=== PATIENT | female | born 1985 | race Caucasian/White ===

== ENCOUNTER 2017-04-25 23:44 | Observation (INO) | payer MEDICAID, OTHER ==
--- NOTE | 2017-04-25 23:56 | EDPHY ---
H & P Time Seen by Provider: 04/25/17 23:46 HPI/ROS: CHIEF COMPLAINT: Right ankle pain HISTORY OF PRESENT ILLNESS: This is a 31-year-old female presenting to the emergency department with. Police department patient states she has been having right ankle pain status post injury 4 days ago, patient states she did go to [facility] 2 days ago but left without being seen. Over the course of 2 days patient stated has increased pain and redness noted to her right ankle" I accidentally dropped a needle on my foot 2 days ago before the redness started" . Patient also reports IV heroin and meth use, last used 04/24/2017 around midnight. Patient states also reports on occasion she has shot up IV drugs in her legs but is adamant of no IV drug use in her feet or in between her toes. " I always use clean needles". Denies any other complaints Please department reports patient was running without difficulty to avoid being arrested REVIEW OF SYSTEMS: Constitutional: No fever. chills. Eyes: No discharge. No blurred vision ENT: No sore throat. Cardiovascular: No chest pain, no palpitations. Respiratory: No cough, no shortness of breath. Gastrointestinal: No abdominal pain, no vomiting. Genitourinary: No hematuria. Musculoskeletal: No back pain. Right ankle pain Skin: No rashes. Neurological: No headache. Physical Exam: General Appearance: Alert, no distress. Head/Eyes: Normocephalic. Abrasion noted right eyebrow. Pupils equal and round no pallor or injection. ENT, Mouth: Mucous membranes moist. Respiratory: There are no retractions, lungs are clear to auscultation. Cardiovascular: Regular rate and rhythm. Gastrointestinal: Abdomen is soft and nontender, no masses, bowel sounds normal. Neurological: No focal deficits Skin: Warm and dry, IV track jorge bilateral upper extremities. Two small puncture wounds noted to right ankle Musculoskeletal: Neck is supple nontender. Extremities: Right ankle swelling, erythema, warm and tender to touch positive CMS intacts. full range of motion. Psychiatric: Patient is oriented X 3, there is no agitation. Constitutional: Initial Vital Signs Temperature (C) 37.6 C 04/25/17 23:55 Heart Rate 116 H 04/25/17 23:55 Respiratory Rate 18 04/25/17 23:55 Blood Pressure 103/78 04/25/17 23:55 O2 Sat (%) 94 06/01/17 23:55 O2 Delivery Mode Room Air Allergies/Adverse Reactions: Penicillins Allergy (Verified 04/25/17 23:54) Home Medications: Medication Instructions Recorded Advair 100/50 (*) 04/25/17 Albuterol 04/25/17 Medical Decision Making ED Course/Re-evaluation: Discussed ED plan of care: CBC, CMP, lactate acid, HCG, and blood cultures ankle x-ray 0115: Patient was was caught with syringe with either meth and heroin unknown at this time, attempting to inject drugs using her IV. KUB ordered to rule out any drugs that may be packed in rectum or vagina. energy control officer at bedside, all personal items removed. 0140: Patient turned over to Dr. Taylor, stable NAD patient awaiting admit Differential Diagnosis: Other differential diagnosis considered but not limited to septic joint, ankle fracture and sepsis - Data Points Laboratory Results: Laboratory Results 04/26/17 00:40 04/26/17 04/26/17 04/26/17 00:50 00:40 00:40 WBC RBC Hgb Hct Pending MCV MCH MCHC RDW Plt Count MPV Neut % (Auto) Lymph % (Auto) [place] % (Auto) Eos % (Auto) Baso % (Auto) Nucleat RBC Rel Count Absolute Neuts (auto) Absolute Lymphs (auto) Absolute Monos (auto) Absolute Eos (auto) Absolute Basos (auto) Absolute Nucleated RBC Immature Gran % Immature Gran # ESR Pending VBG Lactic Acid 1.1 mmol/L mmol/L (0.7-2.1) Sodium Potassium Chloride Carbon Dioxide Anion Gap BUN Creatinine Estimated GFR Glucose Calcium Total Bilirubin AST ALT Alkaline Phosphatase C-Reactive Protein Total Protein Albumin Beta HCG, Qual NEGATIVE 04/26/17 04/26/17 00:40 00:40 WBC 11.45 10^3/uL H 10^3/uL (3.80-9.50) RBC 4.67 10^6/uL 10^6/uL (4.18-5.33) Hgb 12.8 g/dL g/dL (12.6-16.3) Hct 38.4 % % (38.0-47.0) MCV 82.2 fL fL (81.5-99.8) MCH 27.4 pg L pg (27.9-34.1) MCHC 33.3 g/dL g/dL (32.4-36.7) RDW 13.0 % % (11.5-15.2) Plt Count 263 10^3/uL 10^3/uL (150-400) MPV 10.0 fL fL (8.7-11.7) Neut % (Auto) 71.3 % % (39.3-74.2) Lymph % (Auto) 19.1 % % (15.0-45.0) [place] % (Auto) 7.3 % % (4.5-13.0) Eos % (Auto) 1.6 % % (0.6-7.6) Baso % (Auto) 0.4 % % (0.3-1.7) Nucleat RBC Rel Count 0.0 % % (0.0-0.2) Absolute Neuts (auto) 8.15 10^3/uL H 10^3/uL (1.70-6.50) Absolute Lymphs (auto) 2.19 10^3/uL 10^3/uL (1.00-3.00) Absolute Monos (auto) 0.84 10^3/uL H 10^3/uL (0.30-0.80) Absolute Eos (auto) 0.18 10^3/uL 10^3/uL (0.03-0.40) Absolute Basos (auto) 0.05 10^3/uL 10^3/uL (0.02-0.10) Absolute Nucleated RBC 0.00 10^3/uL 10^3/uL (0-0.01) Immature Gran % 0.3 % % (0.0-1.1) Immature Gran # 0.04 10^3/uL 10^3/uL (0.00-0.10) ESR VBG Lactic Acid Sodium Pending Potassium Pending Chloride Pending Carbon Dioxide Pending Anion Gap Pending BUN Pending Creatinine Pending Estimated GFR Pending Glucose Pending Calcium Pending Total Bilirubin Pending AST Pending ALT Pending Alkaline Phosphatase Pending C-Reactive Protein Pending Total Protein Pending Albumin Pending Beta HCG, Qual Departure - Departure Disposition: [facility] Inpatient Acute Clinical Impression: Cellulitis of right ankle Condition: Good
[2017-04-26] MEDS ORDERED: VANCOMYCIN 1.5 GM in D5W 250 ML IV ONE (00:36)
[2017-04-26 01:13] LABS: % IMMATURE GRANULYOCYTES 0.3 % (0.0-1.1); ABSOLUTE IMMATURE GRANULOCYTES 0.04 10^3/uL (0.00-0.10); ADD DIFF? NO; ADD MORPH? NO; ADD SCAN? NO; ATYPICAL LYMPHOCYTE FLAG 0 (0-99); FRAGMENT RBC FLAG 0 (0-99); HEMATOCRIT 38.4 % (38.0-47.0); HEMOGLOBIN 12.8 g/dL (12.6-16.3); LEFT SHIFT FLG 0 (0-99); LIPEMIA HEMOLYSIS FLAG 80 (0-99); MEAN CELL HEMOGLOBIN 27.4 pg (27.9-34.1); MEAN CELL HEMOGLOBIN CONCENTR. 33.3 g/dL (32.4-36.7); MEAN CELL VOLUME 82.2 fL (81.5-99.8); PLATELET CLUMPS FLAG 0 (0-99); PLATELET COUNT 263 10^3/uL (150-400); RED BLOOD CELL COUNT 4.67 10^6/uL (4.18-5.33)
[2017-04-26 01:40] LABS: ALANINE AMINOTRANSFERASE 38 IU/L (9-52); ALBUMIN 3.9 g/dL (3.5-5.0); ALKALINE PHOSPHATASE 62 IU/L (38-126); ANION GAP 12 mEq/L (8-16); ASPARTATE AMINOTRANSFERASE 42 IU/L (14-46); BILIRUBIN,TOTAL 1.1 mg/dL (0.1-1.4); C-REACTIVE PROTEIN 72.2 mg/L (<10.0); CALCIUM 8.9 mg/dL (8.5-10.4); CARBON DIOXIDE 24 mEq/l (22-31); CHLORIDE 104 mEq/L (97-110); CREATININE 0.8 mg/dL (0.6-1.0); GLOMERULAR FILTRATION RATE > 60; GLUCOSE 100 mg/dL (70-100); POTASSIUM 3.9 mEq/L (3.5-5.2); SODIUM 140 mEq/L (134-144); TOTAL PROTEIN 7.2 g/dL (6.3-8.2)
[2017-04-26] MEDS ORDERED: ONDANSETRON 4 MG/2 ML VIAL IVP PRN (01:59)
[2017-04-26] MEDS ORDERED: ONDANSETRON DISINTEGRATING 4 MG TAB PO PRN (01:59)
[2017-04-26] MEDS ORDERED: ACETAMINOPHEN 325 MG TAB PO PRN (01:59)
[2017-04-26] MEDS ORDERED: NS 1,000 ML IV SCH (02:00)
[2017-04-26 02:29] LABS: HEMATOCRIT 38.4 % (38.0-47.0)
[2017-04-26 05:04] LABS: % IMMATURE GRANULYOCYTES 0.4 % (0.0-1.1); ABSOLUTE IMMATURE GRANULOCYTES 0.04 10^3/uL (0.00-0.10); ADD DIFF? NO; ADD MORPH? NO; ADD SCAN? NO; ATYPICAL LYMPHOCYTE FLAG 0 (0-99); FRAGMENT RBC FLAG 0 (0-99); HEMATOCRIT 37.8 % (38.0-47.0); HEMOGLOBIN 12.6 g/dL (12.6-16.3); LEFT SHIFT FLG 0 (0-99); LIPEMIA HEMOLYSIS FLAG 80 (0-99); MEAN CELL HEMOGLOBIN 27.2 pg (27.9-34.1); MEAN CELL HEMOGLOBIN CONCENTR. 33.3 g/dL (32.4-36.7); MEAN CELL VOLUME 81.6 fL (81.5-99.8); MEAN PLATELET VOLUME 9.6 fL (8.7-11.7); PLATELET CLUMPS FLAG 0 (0-99); PLATELET COUNT 243 10^3/uL (150-400); RED BLOOD CELL COUNT 4.63 10^6/uL (4.18-5.33)
[2017-04-26 05:22] LABS: ANION GAP 14 mEq/L (8-16); CALCIUM 8.6 mg/dL (8.5-10.4); CARBON DIOXIDE 23 mEq/l (22-31); CHLORIDE 103 mEq/L (97-110); CREATININE 0.6 mg/dL (0.6-1.0); GLOMERULAR FILTRATION RATE > 60; GLUCOSE 111 mg/dL (70-100); MAGNESIUM 1.9 mg/dL (1.6-2.3); POTASSIUM 3.7 mEq/L (3.5-5.2); SODIUM 140 mEq/L (134-144)
[2017-04-26 05:24] LABS: APTT 27.6 SEC (23.0-38.0); INR 1.12 (0.83-1.16); PROTIME(PATIENT) 14.3 SEC (12.0-15.0)
--- NOTE | 2017-04-26 05:35 | PDGENHP ---
History and Physical - Chief Complaint R ankle pain, swelling - History of Present Illness Patient is a 31 year old female with history of mild intermittent asthma and chronic IV drug use who presents to the ED with R ankle pain and swelling. Patient states about 3 or 4 days ago she dropped a syringe she was using for drug administration onto her lateral R ankle and the needle entered her skin. Later that night, she noticed the skin surrounding the needlestick site had begun to turn red and become painful. The next morning, the redness had worsened and was now associated with swelling and significant pain. The pain, swelling and erythema continued to increase over the following days, prompting her to come to the ED for further evaluation. She denies any associated fever, chills, headache, nausea, vomiting, cough, shortness of breath. She last used IV herion/methamphetamine about 24 hours prior to presentation to the ED tonight. Of note, patient reports a history of MRSA cellulitis for which she was hospitalized about 1 year ago at [facility]. On presentation, patient is afebrile and hemodynamically stable. Labs reveal mild leukocytosis and elevated CRP/ESR. She was cultured and initiated on IV antibiotics for cellulitis of her R ankle. While being treated in the ED, patient was found in the ED bathroom attempting to inject drugs. Police are involved and she is currently in police custody. She is being admitted for treatment of her cellulitis. History Information - Allergies/Home Medication List Allergies/Adverse Reactions: Penicillins Allergy (Verified 04/25/17 23:54) Home Medications: Advair 100/50 (*) 04/25/17 [Last Taken Unknown] Albuterol 04/25/17 [Last Taken Unknown] I have personally reviewed and updated: family history, medical history, social history, surgical history - Past Medical History Additional medical history: asthma, mild intermittent - Surgical History Reports: no pertinent surgical hx - Family History Positive for: non-pertinent - Social History Smoking Status: Never smoked Alcohol Use: None Drug Use: Heroin (and methamphetamine IV) Additional social history: Patient reports she is currently homeless. Review of Systems Review of Systems: Patient does report chronic constipation, typically having a BM about once a week. Last BM was 1 week ago. ROS: 10pt was reviewed & negative except for what was stated in HPI & below Physical Exam Temp Pulse Resp BP Pulse Ox 36.8 C 91 16 99/70 L 95 04/26/17 04:42 04/26/17 04:42 04/26/17 04:42 04/26/17 04:42 04/26/17 04:42 O2 (L/minute) 0 Constitutional: no apparent distress, appears nourished, not in pain Eyes: PERRL, anicteric sclera, EOMI Ears, Nose, Mouth, Throat: moist mucous membranes, hearing normal, ears appear normal, no oral mucosal ulcers Cardiovascular: regular rate and rhythym, no murmur, rub, or gallop, pulses symmetric bilaterally, edema (of R ankle), No JVD Peripheral Pulses: 2+: dorsalis-pedis (R), dorsalis-pedis (L) Respiratory: no respiratory distress, no rales or rhonchi, clear to auscultation Gastrointestinal: normoactive bowel sounds, soft, non-tender abdomen, no palpable masses, distension (mildly distended), No guarding, No rebound Genitourinary: no bladder fullness, no bladder tenderness Skin: erythema (warmth and edema of R ankle) Musculoskeletal: full muscle strength, no muscle tenderness, normal joint ROM, no joint effusions Neurologic: AAOx3, sensation intact bilaterally, CN II-XII Intact, No weakness, No numbness, No facial droop Psychiatric: interacting appropriately, not anxious, not encephalopathic, thought process linear Lab Data & Imaging Review 04/26/17 04:40 04/26/17 04:40 WBC 10.27 10^3/uL (3.80-9.50) H 04/26/17 04:40 RBC 4.63 10^6/uL (4.18-5.33) 04/26/17 04:40 Hgb 12.6 g/dL (12.6-16.3) 04/26/17 04:40 Hct 37.8 % (38.0-47.0) L 04/26/17 04:40 MCV 81.6 fL (81.5-99.8) 04/26/17 04:40 MCH 27.2 pg (27.9-34.1) L 04/26/17 04:40 MCHC 33.3 g/dL (32.4-36.7) 04/26/17 04:40 RDW 13.0 % (11.5-15.2) 04/26/17 04:40 Plt Count 243 10^3/uL (150-400) 04/26/17 04:40 MPV 9.6 fL (8.7-11.7) 04/26/17 04:40 Neut % (Auto) 65.0 % (39.3-74.2) 04/26/17 04:40 Lymph % (Auto) 25.1 % (15.0-45.0) 04/26/17 04:40 [place] % (Auto) 7.4 % (4.5-13.0) 04/26/17 04:40 Eos % (Auto) 1.7 % (0.6-7.6) 04/26/17 04:40 Baso % (Auto) 0.4 % (0.3-1.7) 04/26/17 04:40 Nucleat RBC Rel Count 0.0 % (0.0-0.2) 04/26/17 04:40 Absolute Neuts (auto) 6.68 10^3/uL (1.70-6.50) H 04/26/17 04:40 Absolute Lymphs (auto) 2.58 10^3/uL (1.00-3.00) 04/26/17 04:40 Absolute Monos (auto) 0.76 10^3/uL (0.30-0.80) 04/26/17 04:40 Absolute Eos (auto) 0.17 10^3/uL (0.03-0.40) 04/26/17 04:40 Absolute Basos (auto) 0.04 10^3/uL (0.02-0.10) 04/26/17 04:40 Absolute Nucleated RBC 0.00 10^3/uL (0-0.01) 04/26/17 04:40 Immature Gran % 0.4 % (0.0-1.1) 04/26/17 04:40 Immature Gran # 0.04 10^3/uL (0.00-0.10) 04/26/17 04:40 ESR 40 MM/HR (0-20) H 04/26/17 00:40 PT 14.3 SEC (12.0-15.0) 04/26/17 04:40 INR 1.12 (0.83-1.16) 04/26/17 04:40 APTT 27.6 SEC (23.0-38.0) 04/26/17 04:40 VBG Lactic Acid 1.1 mmol/L (0.7-2.1) 04/26/17 00:50 Sodium 140 mEq/L (134-144) 04/26/17 04:40 Potassium 3.7 mEq/L (3.5-5.2) 04/26/17 04:40 Chloride 103 mEq/L (97-110) 04/26/17 04:40 Carbon Dioxide 23 mEq/l (22-31) 04/26/17 04:40 Anion Gap 14 mEq/L (8-16) 04/26/17 04:40 BUN 16 mg/dL (7-23) 04/26/17 04:40 Creatinine 0.6 mg/dL (0.6-1.0) 04/26/17 04:40 Estimated GFR > 60 04/26/17 04:40 Glucose 111 mg/dL (70-100) H 04/26/17 04:40 Calcium 8.6 mg/dL (8.5-10.4) 04/26/17 04:40 Magnesium 1.9 mg/dL (1.6-2.3) 04/26/17 04:40 Total Bilirubin 1.1 mg/dL (0.1-1.4) 04/26/17 00:40 AST 42 IU/L (14-46) 04/26/17 00:40 ALT 38 IU/L (9-52) 04/26/17 00:40 Alkaline Phosphatase 62 IU/L (38-126) 04/26/17 00:40 C-Reactive Protein 72.2 mg/L (<10.0) H 04/26/17 00:40 Total Protein 7.2 g/dL (6.3-8.2) 04/26/17 00:40 Albumin 3.9 g/dL (3.5-5.0) 04/26/17 00:40 Beta HCG, Qual NEGATIVE 04/26/17 00:40 Visualized and Interpreted imaging results: Yes Interpretation: Xray ankle: no obvious effusion or evidence of OM; radiology read pending Assessment & Plan Assessment: Patient is a 31-year-old female with a history IV drug use presents to the ED with right ankle edema, erythema and tenderness after hypodermic needle stick consistent with acute cellulitis. Plan: # sepsis, acute cellulitis On presentation to ED, patient was afebrile, but had tachycardia and mild leukocytosis, meeting SIRS criteria. Source of infection is likely acute cellulitis of right ankle after needle stick while using IV drugs. No evidence of severe sepsis, end organ damage or hemodynamic instability. Patient does report a history of MRSA cellulitis in the past, so will cover with broad- spectrum antibiotics initially. X-ray taken to evaluate for abscess, bony involvement or osteomyelitis, radiology read pending, no obvious abscess on my read. - f/u blood cultures - cont Vanc IV BID - cont IVF hydration - monitor CBC, fever curve - f/u xray read # continuous IVDU Patient admits to daily use, is not contemplating cessation. Advised of the risk of continuous IV drug use, including recurrent infections, overdose, etc, however, patient is resistant to cessation/rehab evaluation. Treat withdrawal symptoms with clonidine, benzo as needed. # asthma No respiratory symptoms. nebs prn. # dispo: Admit to observation status # gen; regular diet DVT ppx: low risk Full code
[2017-04-26] MEDS ORDERED: LOPERAMIDE HCL 2 MG CAP PO PRN (11:27)
[2017-04-26] MEDS ORDERED: DICYCLOMINE 20 MG TAB PO PRN (11:27)
[2017-04-26] MEDS ORDERED: hydrOXYzine HCL 25 MG TAB PO PRN (11:27)
[2017-04-26 11:49] LABS: COLOR YELLOW; LEUKOCYTE ESTERASE,URINE 1+ (NEGATIVE); NITRITE,URINE NEGATIVE (NEGATIVE)
[2017-04-26 11:54] LABS: BACTERIA TRACE /hpf (NONE SEEN); MUCUS 1+ /lpf (NONE-1+); RBC,URINE 15-25 /hpf (0-3)
[2017-04-26] MEDS: IBUPROFEN 600 MG TAB PO SCH ×2 (12:11→19:51)
[2017-04-26] MEDS ORDERED: ALBUTEROL 60 PUFFS/8 GM MDI IH PRN (13:30)
--- NOTE | 2017-04-26 13:35 | HOSPPROG ---
Hospitalist Progress Note Assessment/Plan: Patient is a 31-year-old female with a history IV drug use presents to the ED with right ankle edema, erythema and tenderness after hypodermic needle stick consistent with acute cellulitis. # sepsis (improving) with acute cellulitis -xrays reviewed (no gas) -cont IV Vanco -Will consult ID # continuous IVDU - start clonidine as needed for withdrawal symptom # asthma No respiratory symptoms. nebs prn. # dispo: Admit to observation status # gen; regular diet DVT ppx: low risk Full code Subjective: reports 8/10 pain in her right ankle. She is able to bear weight. She denies any fevers or chills. Overall her pain is improving since starting antibiotics Objective: Vital Signs Temp Pulse Resp BP Pulse Ox 36.7 C 92 16 114/79 97 04/26/17 11:58 04/26/17 11:58 04/26/17 11:58 04/26/17 12:15 04/26/17 11:58 Laboratory Results 04/26/17 04:40 04/26/17 04:40 04/25/17 04/26/17 04/27/17 05:59 05:59 05:59 Intake Total 650 Balance 650 PT 14.3 SEC (12.0-15.0) 04/26/17 04:40 INR 1.12 (0.83-1.16) 04/26/17 04:40 - Physical Exam Constitutional: no apparent distress, appears nourished, not in pain Cardiovascular: regular rate and rhythym, no murmur, rub, or gallop Respiratory: no respiratory distress, no rales or rhonchi, clear to auscultation Skin: warm, erythema ( there is erythema without induration or fluctuance over the right lateral malleolus), No fluctuance ICD10 Worksheet Patient Problems: Problems Problem Status Onset Cellulitis of right ankle Acute
[2017-04-26] MEDS: VANCOMYCIN HCL/NORMAL SALINE 250 ML IV SCH (14:16)
--- NOTE | 2017-04-26 17:48 | GCON ---
[f rep st] CONSULTATION INFECTIOUS DISEASE CONSULT DATE OF CONSULTATION: 04/26/2017 REFERRING PHYSICIAN: Mauro Maloney DO REASON FOR CONSULTATION: Right lower extremity cellulitis. HISTORY OF PRESENT ILLNESS: A 31-year-old woman with long-standing IV drug use since childhood, who presents to the emergency room with right ankle pain after being arrested. Her right ankle started hurting approximately 4 days ago after she accidentally dropped a needle on it. She does not inject her feet. She does endorse always using a clean needle/needle exchange program. Her last HIV testing was 1 year ago. She denies any systemic symptoms associated with it, including fevers, chills, night sweats. PAST MEDICAL HISTORY: Long-standing IV drug use, asthma. Patient reports a history of MRSA several years ago. PAST SURGICAL HISTORY: None. ALLERGIES: Penicillin which causes hives. MEDICATIONS: Include Tylenol, Proventil, Catapres, Bentyl, hydroxyzine, Motrin , Imodium, Zofran and vancomycin 1 g IV q.12. vancomycin was started on admission 04/26, early this morning. FAMILY HISTORY: Reviewed and noncontributory. SOCIAL HISTORY: She has never smoked. Does not use alcohol. She uses IV heroin and methamphetamine, injects directly into her vein. No skin-popping. 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 She is sexually active and is not currently using protection. Her last HIV testing was 1 year ago. She is currently homeless. REVIEW OF SYSTEMS: A complete 10-point review of review of systems was performed and is negative except as mentioned in the HPI. Patient denies dysuria or urinary frequency. PHYSICAL EXAMINATION: VITAL SIGNS: Blood pressure 110/72, heart rate 101, respiratory rate 16, saturation 96% on room air, temperature 36.6. She has been afebrile. HEENT: Injected conjunctivae bilaterally. Oropharynx poor dentition. Moist mucous membranes. No oral ulcerations or exudate. NECK: Supple. No lymphadenopathy. CARDIOVASCULAR: Regular rate. Mildly tachycardic. No systolic murmur. CHEST: Clear to auscultation bilaterally. ABDOMEN: Soft, nontender. EXTREMITIES: Right lateral ankle with erythema over the lateral malleolus, slightly upper ankle and over the lateral aspect of her foot. Appears to have receded from prior lines drawn. Mildly tender to palpation. She is able to fully move her ankle without limitation of range of motion. SKIN: She has no splinter hemorrhages or [place] lesions. She appears to chronically bite her fingernails. NEUROLOGIC: She is moving all 4 extremities equally. Her gait is stable. She is able to ambulate independently. LABORATORY DATA: White count 11.4 on admission, 10.2 this afternoon, hematocrit 37, platelets of 243, 65% neutrophils. ESR was 40. Beta hCG was negative. Creatinine 0.6. Urinalysis showed some mild hematuria with 15-25 RBCs and 5-10 WBCs. IMAGING: None obtained. ASSESSMENT AND PLAN: This is a 31-year-old woman whose primary problem is chronic IV drug use who presents with cellulitis of the right lateral ankle following trauma. Patient does endorse a history of methicillin-resistant Staph aureus, although on review of [facility] records I could not find this culture. Nonetheless, patient with multiple incarcerations and homelessness, as well as IV drug use puts her at risk for methicillin-resistant Staphylococcus aureus. RECOMMENDATIONS: 1. Agree with IV vancomycin. 2. Elevate right lower extremity. 3. Likely need to wait for antibiotics to be negative for 48 hours as patient is high risk for bacteremia. 4. Suspect at the 48-hour beto of IV antibiotics, the patient's cellulitis will have improved enough to step-down to oral therapy to complete antibiotics. 5. Screen HCV, HAV, HBV, HIV I will continue to follow on a daily basis. Thank you for this consultation. /[id number]/[id number] MTDD
[2017-04-26] MEDS: FLUTICASONE/SALMETER 100/50MCG DISKUS IH SCH (21:17)
[2017-04-27] MEDS: VANCOMYCIN HCL/NORMAL SALINE 250 ML IV SCH (02:00)
[2017-04-27 07:43] VITALS: BP 117/77; TEMP 97.8
[2017-04-27] MEDS: FLUTICASONE/SALMETER 100/50MCG DISKUS IH SCH (09:16)
[2017-04-27 09:17] VITALS: PULSE 75; RESP 14; O2SAT 97
--- NOTE | 2017-04-27 09:51 | PCMIDPN ---
Assessment/Plan: #R ankle cellulitis - significant improvement today, less pain, less erythema. Okay to transition to PO antibiotics --dc 5 more day of doxycycline 100mg PO BID + Keflex 500mg PO TID --no ID f/u needed #IVDU : HIV, HCV negative. Immune HBV, HAV, patient given results. Encouraged drug rehab. and abstinence from IV drugs Subjective: Patient reports significant improvement in ankle pain Objective: Vital Signs Temp Pulse Resp BP Pulse Ox 36.6 C 75 14 117/77 97 04/27/17 07:40 04/27/17 09:16 04/27/17 09:16 04/27/17 07:40 04/27/17 09:16 Laboratory Results 04/26/17 04:40 04/26/17 04:40 04/26/17 04/27/17 04/28/17 05:59 05:59 05:59 Intake Total 650 2400 Output Total 1000 Balance 650 1400 ESR 40 MM/HR (0-20) H 04/26/17 00:40 C-Reactive Protein 72.2 mg/L (<10.0) H 04/26/17 00:40 General: Young woman no acute distress Cardiovascular : regular rate and rhythm no murmurs Skin: No peripheral stigmata of endocarditis Right ankle minimal residual erythema on the lateral foot remain, significant recession from prior exam. Range of motion of ankle is intact ICD10 Worksheet Patient Problems: Problems Problem Status Onset Cellulitis of right ankle Acute
[2017-04-27] MEDS: IBUPROFEN 600 MG TAB PO SCH (10:32)
--- NOTE | 2017-04-27 15:49 | GDS ---
[f rep st] DISCHARGE SUMMARY DISCHARGE DIAGNOSES: 1. Right ankle cellulitis. 2. Resolved sepsis. 3. Continuous IV drug abuse. 4. Asthma. FISH GRADER: Dr. Claribel Mclaughlin from infectious disease. HOSPITAL COURSE AND STAY: By problem: Right ankle cellulitis and sepsis: The patient was admitted to the hospital, where she was started on IV vancomycin. Inflammatory markers were sent and were e levated. Her ESR was 40, with a CRP of 72. She initially had substantial pain in her right ankle. X-rays were done that did not reveal any gas or bone involvement. After 24 hours of hospitalizatio n with IV vancomycin, her pain is drastically reduced. The redness that existed over her right late ral malleolus is nearly resolved. The patient was offered further hospitalization for IV vancomycin . And after a long discussion with the patient and with Dr. Mclaughlin, who thought it to be reasonable for her to be discharged, to complete 5 days of oral cephalexin and doxycycline. The patient under stands to seek followup if her pain returns or the redness worsens. Blood cultures done on admissio n have not grown any organisms, but these should be followed up. Hepatitis and HIV serologies were drawn that were unremarkable. PHYSICAL EXAM: VITAL SIGNS: On day of discharge, blood pressure 117/77, pulse 97, respiratory rate 20, O2 sat 98% on room air. Temperature afebrile. GENERAL: In no acute distress. HEART: S1, S2 . LUNGS: Clear. ABDOMEN: Soft. EXTREMITIES: No edema. Right ankle with really resolved erythe ma over the lateral malleolus. There is no pain to palpation over the ankle. DISCHARGE MEDICATIONS: Please refer to discharge medication reconciliation in [facility] for details. Below is the preliminary list of new medications on hospital discharge: Cephalexin 500 mg p.o. t. i.d. for 5 more days, and doxycycline 100 mg p.o. b.i.d. for 5 days. All other home medications wer e continued as usual home dosages. DISCHARGE INSTRUCTIONS: The patient was discharged home, where she was urged to follow up with her primary care provider in the next week for routine hospital followup. She should seek medical atten tion if her symptoms worsen. She should have followup of her blood cultures that were drawn on admi ssion. /[id number]/MODL
[2017-04-27 15:53] LABS: HEPATITIS Bs Ab QUANT 7.7 mIU/mL
== END 2017-04-27 11:13 | disposition home or self-care (01) ==
LOC: EDUNIT# → INTOOBSV 04-26 01:20 → F1N 04-26 02:34
PROVIDERS: ADMIT Internal Medicine; ATTEND Family Medicine
DX: A41.9 Sepsis, unspecified organism (principal); L03.115 Cellulitis of right lower limb; F15.20 Other stimulant dependence, uncomplicated; F11.20 Opioid dependence, uncomplicated; J45.909 Unspecified asthma, uncomplicated; K59.09 Other constipation; Z86.14 Personal history of Methicillin resistant Staphylococcus aureus infection; Z88.0 Allergy status to penicillin
CPT/HCPCS: 73610; 74000; 99285; G0378; 86708-90; 86709-90; G0472; J3370

== ENCOUNTER 2019-01-16 10:05 | Emergency (ER) | payer MEDICAID ==
[2019-01-16] MEDS ORDERED: DEXAMETHASONE 10 MG/ML VIAL PO ONE (10:16)
[2019-01-16] MEDS ORDERED: IPRATROPIUM/ALBUTEROL 3 ML DEYVIAL IH ONE (10:16)
--- NOTE | 2019-01-16 10:16 | EDPHY ---
H & P Stated Complaint: Dyspnea Time Seen by Provider: 01/16/19 10:10 HPI/ROS: CHIEF COMPLAINT: Dyspnea, "my asthma is flared up" HISTORY OF PRESENT ILLNESS: 33-year-old female history of asthma arrives via private vehicle complaining of 4 days of acute asthma exacerbation. She has previously been on inhaled steroids however prescription route 4 months ago. She is complaining of dyspnea. No chest pain. No syncope or near syncope. No fever or chills. She is up-to-date with her seasonal influenza vaccination. REVIEW OF SYSTEMS: 10 systems reviewed and negative with the exception of the elements mentioned in the history of present illness PAST MEDICAL & SURGICAL HISTORY: Asthma.. SOCIAL HISTORY: Nonsmoker PHYSICAL EXAM (Prior to examination, patient consented to physical exam, hands were washed and my usual and customary physical exam procedures followed) 1) GENERAL: Well-developed, well-nourished, alert and oriented. Appears uncomfortable 2) HEAD: Normocephalic, atraumatic 3) HEENT: Pupils equal, round, reactive to light bilaterally. Sclera anicteric. Nasopharynx, oropharynx, clear, no lesions. Moist Mucous membranes. 4) NECK: Full range of motion, no meningeal signs. 5) LUNGS: bilateral inspiratory and expiratory wheeze.. 6) HEART: Regular rate and rhythm, no murmur, no heave, no gallop. 7) ABDOMEN: No guarding, no rebound, no focal tenderness, negative McBurney's, negative Urbina's, negative Rovsing's, negative peritoneal sign, 8) MUSCULOSKELETAL: Moving all extremities, no focal areas of tenderness, no obvious trauma. No peripheral edema or discoloration. 9) BACK: No CVA tenderness, no midline vertebral tenderness, no fluctuance, no step-off, no obvious trauma, no visual or palpable abnormality. 10) SKIN: No rash, no petechiae. 11) Psychiatric: Patient is oriented X 3, there is no agitation. DIFFERENTIAL DIAGNOSIS: In no particular order including but not limited to acute asthma exacerbation, pneumothorax, pneumonia, bronchitis, pulmonary embolus - Personal History LMP (Females 10-55): 8-14 Days Ago Current Tetanus/Diphtheria Vaccine: Yes Tetanus Vaccine Date: < 10 years - Medical/Surgical History Hx Asthma: Yes Hx Chronic Respiratory Disease: No Hx Diabetes: No Hx Cardiac Disease: No Hx Renal Disease: No Hx Cirrhosis: No Hx Alcoholism: No Hx HIV/AIDS: No Hx Splenectomy or Spleen Trauma: No Other PMH: etoh and drug abuse. asthma - Social History Smoking Status: Current every day smoker Constitutional: Initial Vital Signs Temperature (C) 37.0 C 01/16/19 10:08 Heart Rate 105 H 01/16/19 10:08 Respiratory Rate 18 01/16/19 10:08 Blood Pressure 113/76 01/16/19 10:08 O2 Sat (%) 88 L 01/16/19 10:08 O2 Delivery Mode Room Air Allergies/Adverse Reactions: Penicillins Allergy (Verified 01/16/19 10:10) Hives Home Medications: Medication Instructions Recorded Neurontin 09/25/14 Wellbutrin Sr 09/25/14 Albuterol Hfa Anes Only [Proair 2 puffs IH Q4 PRN #1 mdi 12/01/14 Hfa Icu (*)] Beclomethasone Qvar 80 [Qvar 80] 1 - 2 puffs IH BIDI #1 mdi 12/01/14 GABAPENTIN 12/01/14 Ondansetron Odt [Zofran Odt] 4 - 8 mg PO Q4PRN PRN #4 tab 12/01/14 SUMAtriptan [Imitrex 50 MG (RX)] 50 - 100 mg PO Q2H PRN #6 tab 12/01/14 Symbicort 160-4.5 Mcg Inh (RX) 12/01/14 Wellbutrin 100mg (RX) 12/01/14 clonIDINE 12/01/14 Albuterol [Proventil Inhaler HFA 1 - 2 puffs IH DAILY PRN 04/25/17 (*)] Fluticasone/Salmeter 100/50Mcg 1 puffs IH BID 04/25/17 [Advair 100/50 (*)] Cephalexin [Keflex (*)] 500 mg PO TID #15 cap 04/27/17 Doxycycline Hyclate 100 mg PO BID #10 tablet 04/27/17 Albuterol [Proventil Inhaler HFA 1 - 2 puffs IH Q4PRN PRN #1 mdi 01/16/19 (*)] Fluticasone/Salmeter 250/50Mcg 1 puffs IH BID #1 disk 01/16/19 [Advair 250/50 (*)] Medical Decision Making - Diagnostics Imaging Results: Imaging Impressions Chest X-Ray 01/16/19 10:29 Impression: Central bronchitis; otherwise negative chest. Images reviewed myself ED Course/Re-evaluation: 10:50 a.m.: Re-evaluation after DuoNeb x2, oral Decadron x1. Pulse oxygenation mid 90s, she is feeling "much better" lungs are auscultated and are clear bilaterally. Will ambulate the patient with pulse oximetry. Will continue to observe patient. 11:46 a.m.: Re-evaluation, sleeping, saturations 96 % on room air. Feeling improvement. She would like to be discharged. Taylor auscultate her lungs are clear bilaterally. She requests a refill of her albuterol as well as refill of her Advair. She has been given dose of Decadron in the ER. Given my usual customary respiratory precautions instructions. Doubt PE. Doubt pneumothorax. Doubt pneumonia. I do not think that antibiotics indicated at this time. Patient feels comfortable being discharged. All questions and concerns addressed by myself. Patient given my usual and customary discharge precautions and instructions regarding their clinical impression. Care of patient under supervision of secondary supervising physician Dr Friedman . - Data Points Medications Given: Discontinued Medications Albuterol/Ipratropium (Duoneb) 3 ml IH EDNOW ONE Stop: 01/16/19 10:17 Last Admin: 01/16/19 10:27 Dose: 3 ml Dexamethasone (Decadron Injection) 10 mg PO EDNOW ONE Stop: 01/16/19 10:17 Last Admin: 01/16/19 10:27 Dose: Not Given Dexamethasone (Decadron) 10 mg PO EDNOW ONE Stop: 01/16/19 10:26 Last Admin: 01/16/19 10:30 Dose: 10 mg Departure - Departure Disposition: Home, Routine, Self-Care Clinical Impression: Asthma exacerbation Qualifiers: Asthma severity: mild Asthma persistence: intermittent Qualified Code(s): J45.21 - Mild intermittent asthma with (acute) exacerbation Condition: Good Instructions: Asthma (ED) Additional Instructions: You were examined in the emergency department today for upper respiratory infection (URI) like symptoms. While more URIs are caused by viral illnesses, we cannot always exclude the possibility of a bacterial infection that may require treatment with antibiotics. Return to the emergency department immediately for change in breathing habits, change in voice, change in swallowing habits, change in mental status, or any other symptoms that concern you. Referrals: Stephanie Vigil [Primary Care Provider] - 2-3 days, call for appt. Prescriptions: Albuterol [Proventil Inhaler HFA (*)] 1 - 2 puffs IH Q4PRN PRN #1 mdi PRN Reason: Cough, Moderate Fluticasone/Salmeter 250/50Mcg [Advair 250/50 (*)] 1 puffs IH BID #1 disk
[2019-01-16] MEDS ORDERED: DEXAMETHASONE 4 MG TAB PO ONE (10:25)
[2019-01-16 12:10] VITALS: BP 115/78
== END 2019-01-16 12:15 | disposition home or self-care (01) ==
DX: J45.901 Unspecified asthma with (acute) exacerbation (principal)
CPT/HCPCS: J1100

== ENCOUNTER 2019-02-02 04:37 | Emergency (ER) | payer MEDICAID ==
--- NOTE | 2019-02-02 04:41 | EDPHY ---
H & P Time Seen by Provider: 02/02/19 04:41 HPI/ROS: HPI CHIEF COMPLAINT: Shortness of breath, wheezing. HISTORY OF PRESENT ILLNESS: This patient is a 33-year-old female she has a history of asthma, she presents emergency room shortness of breath times 48 hr progressively getting worse with wheezing and cough. She denies any fever productive cough. States that she used her albuterol inhaler numerous times today without significant relief. She arrives to the emergency room around 5:00 a.m. With worsening shortness of breath, wheezing. She noted to have audible wheezing on exam. Tachypneic in the 30s. She has noted be tachycardic. But No significant distress. Past Medical History: History of asthma Past Surgical History: No recent surgery Social History: Denies drugs alcohol tobacco. Family History: Noncontributory ROS REVIEW OF SYSTEMS: 10 Systems were reviewed and negative with the exception of the elements mentioned in the history of present illness. Exam Constitutional triage nursing summary reviewed, vital signs reviewed, awake/ alert. Eyes normal conjunctivae and sclera, EOMI, PERRLA. HENT normal inspection, atraumatic, moist mucus membranes, no epistaxis, neck supple/ no meningismus, no raccoon eyes. Respiratory tachypnea, wheezing throughout all lung sky, audible wheezing. Cardiovascular rate normal, regular rhythm, no murmur, no edema, distal pulses normal. Gastrointestinal soft, non-tender, no rebound, no guarding, normal bowel sounds, no distension, no pulsatile mass. Genitourinary no CVA tenderness. Musculoskeletal no midline vertebral tenderness, full range of motion, no calf swelling, no tenderness of extremities, no meningismus, good pulses, neurovascularly intact. Skin pink, warm, & dry, no rash, skin atraumatic. Neurologic awake, alert and oriented x 3, AAOx3, moves all 4 extremities equally, motor intact, sensory intact, CN II-XII intact, normal cerebellar, normal vision, normal speech. Psychiatric normal mood/affect. Heme/Lymph/Immune no lymphadenopathy. Differential Diagnosis: Includes but is not limited to in a particular order acute asthma, reactive airway disease, pneumonia, bronchitis, viral syndrome, bacterial pneumonia Medical Decision Making: Plan for this patient IV establishment IV fluid bolus , IV Solu-Medrol, DuoNeb breathing treatment, chest x-ray, basic labs and re- evaluate. Re-evaluation: 0629: Re-examination at this time patient is feeling much better after 2 DuoNeb breathing treatments. On re-examination of lungs are clear bilaterally with good air movement. No significant wheezing. Her current vitals blood pressure 132/94, heart rate 104, pulse ox 93% on room air. Patient's chest x-ray reviewed bronchial thickening but no pneumonia no pneumothorax. Image interpreted by myself. Patient is eager for discharge. Prednisone prescription be provided. She already received IV Solu-Medrol here in the emergency room. Take-home albuterol inhaler will be provided Advair prescription. Additionally I discussed return precautions with her she understands to return to the emergency room she develops worsening shortness of breath, wheezing, not doing well. 7:00 a.m. Patient ambulated well around the emergency room without difficulty. No wheezing. Good air movement. She feels comfortable being discharged. No hypoxia. No increased work of breathing. Went over return precautions with her she understands return emergency she has worsening shortness of breath, wheezing, not doing well. Albuterol inhaler provided 2 puffs every 4 hr as needed for wheezing shortness of breath. Steroids as prescribed. Source: Patient - Personal History Tetanus Vaccine Date: < 10 years - Medical/Surgical History Hx Asthma: Yes Hx Chronic Respiratory Disease: No Hx Diabetes: No Hx Cardiac Disease: No Hx Renal Disease: No Hx Cirrhosis: No Hx Alcoholism: No Hx HIV/AIDS: No Hx Splenectomy or Spleen Trauma: No Other PMH: etoh and drug abuse. asthma - Social History Smoking Status: Current every day smoker Constitutional: Initial Vital Signs Temperature (C) 37.0 C 02/02/19 04:40 Heart Rate 123 H 02/02/19 04:40 Respiratory Rate 22 H 02/02/19 04:40 Blood Pressure 130/73 H 02/02/19 04:40 O2 Sat (%) 96 02/02/19 04:40 O2 Delivery Mode Room Air O2 (L/minute) 2 Allergies/Adverse Reactions: Penicillins Allergy (Verified 02/02/19 04:44) Hives Home Medications: Medication Instructions Recorded Albuterol [Ventolin Hfa Inhaler] 200 puffs IH 02/02/19 Fluticasone/Salmeter 500/50Mcg 1 puffs IH BID 02/02/19 [Advair 500/50 (*)] Fluticasone/Salmeter 500/50Mcg 1 puffs IH BID #1 disk 02/02/19 [Advair 500/50 (*)] predniSONE 60 mg PO DAILY #15 tab 02/02/19 Medical Decision Making - Data Points Laboratory Results: Laboratory Results 02/02/19 05:00 02/02/19 05:00 02/02/19 02/02/19 05:00 05:00 WBC 12.08 10^3/uL H 10^3/uL (3.80-9.50) RBC 4.98 10^6/uL 10^6/uL (4.18-5.33) Hgb 14.0 g/dL g/dL (12.6-16.3) Hct 42.7 % % (38.0-47.0) MCV 85.7 fL fL (81.5-99.8) MCH 28.1 pg pg (27.9-34.1) MCHC 32.8 g/dL g/dL (32.4-36.7) RDW 12.1 % % (11.5-15.2) Plt Count 289 10^3/uL 10^3/uL (150-400) MPV 9.9 fL fL (8.7-11.7) Neut % (Auto) 56.1 % % (39.3-74.2) Lymph % (Auto) 20.7 % % (15.0-45.0) Snyder % (Auto) 7.1 % % (4.5-13.0) Eos % (Auto) 15.1 % H % (0.6-7.6) Baso % (Auto) 0.8 % % (0.3-1.7) Nucleat RBC Rel Count 0.0 % % (0.0-0.2) Absolute Neuts (auto) 6.78 10^3/uL H 10^3/uL (1.70-6.50) Absolute Lymphs (auto) 2.50 10^3/uL 10^3/uL (1.00-3.00) Absolute Monos (auto) 0.86 10^3/uL H 10^3/uL (0.30-0.80) Absolute Eos (auto) 1.82 10^3/uL H 10^3/uL (0.03-0.40) Absolute Basos (auto) 0.10 10^3/uL 10^3/uL (0.02-0.10) Absolute Nucleated RBC 0.00 10^3/uL 10^3/uL (0-0.01) Immature Gran % 0.2 % % (0.0-1.1) Immature Gran # 0.02 10^3/uL 10^3/uL (0.00-0.10) Sodium 140 mEq/L mEq/L (135-145) Potassium 4.2 mEq/L mEq/L (3.5-5.2) Chloride 104 mEq/L mEq/L (97-110) Carbon Dioxide 26 mEq/l mEq/l (22-31) Anion Gap 10 mEq/L mEq/L (6-14) BUN 12 mg/dL mg/dL (7-23) Creatinine 0.7 mg/dL mg/dL (0.6-1.0) Estimated GFR > 60 Glucose 96 mg/dL mg/dL (70-100) Calcium 8.9 mg/dL mg/dL (8.5-10.4) Medications Given: Discontinued Medications Albuterol Sulfate (Proventil Inh Prepack) 1 mdi TAKEHOME EDNOW ONE Stop: 02/02/19 06:29 Last Admin: 02/02/19 06:34 Dose: 1 mdi Albuterol/Ipratropium (Duoneb) 3 ml IH EDNOW ONE Stop: 02/02/19 04:49 Last Admin: 02/02/19 04:51 Dose: 3 ml Albuterol/Ipratropium (Duoneb) 3 ml IH EDNOW ONE Stop: 02/02/19 05:26 Last Admin: 02/02/19 05:27 Dose: 3 ml Sodium Chloride (Ns) 1,000 mls @ 0 mls/hr IV ONCE ONE; Wide Open PRN Reason: Protocol Stop: 02/02/19 04:49 Last Admin: 02/02/19 04:55 Dose: 1,000 mls Sodium Chloride (Ns) 1,000 mls @ 0 mls/hr IV ONCE ONE PRN Reason: Wide Open Stop: 02/02/19 05:13 Last Admin: 02/02/19 05:19 Dose: 1,000 mls Methylprednisolone Sodium Succinate (Solu-Medrol) 125 mg IVP EDNOW ONE Stop: 02/02/19 04:50 Last Admin: 02/02/19 04:55 Dose: 125 mg Departure - Departure Disposition: [facility] Inpatient Acute Clinical Impression: Acute bronchitis, Asthma Condition: Fair Instructions: Asthma (ED) Additional Instructions: 1. Stay well-hydrated drink lots of fluids. 2. Albuterol inhaler 2 puffs as needed every 4 hr for cough and shortness of breath 3. Prednisone as prescribed. 4. Please return to the emergency room if you have worsening symptoms includes worsening shortness of breath, wheezing, not doing well. Referrals: NONE *PRIMARY CARE P,. [Primary Care Provider] - As per Instructions [facility],. [Clinic] - As per Instructions Prescriptions: Fluticasone/Salmeter 500/50Mcg [Advair 500/50 (*)] 1 puffs IH BID #1 disk predniSONE 60 mg PO DAILY #15 tab
[2019-02-02] MEDS ORDERED: NS 1,000 ML IV ONE ×2 (04:48→05:12)
[2019-02-02] MEDS ORDERED: IPRATROPIUM/ALBUTEROL 3 ML DEYVIAL IH ONE ×2 (04:48→05:25)
[2019-02-02] MEDS ORDERED: IPRATROPIUM/ALBUTEROL 3 ML DEYVIAL ONE (04:49)
[2019-02-02] MEDS ORDERED: methylPREDNISolone SOD SUCC 125 MG/2 ML VIAL IVP ONE (04:49)
[2019-02-02 05:05] LABS: PLATELET COUNT 289 10^3/uL (150-400)
[2019-02-02] MEDS ORDERED: ALBUTEROL INH PREPACK MDI TAKEHOME ONE (06:28)
[2019-02-02 06:35] VITALS: BP 115/71
== END 2019-02-02 07:31 | disposition still patient (30) ==
DX: J20.9 Acute bronchitis, unspecified (principal); J45.909 Unspecified asthma, uncomplicated; E86.9 Volume depletion, unspecified
CPT/HCPCS: 96374; J2930

== ENCOUNTER 2019-03-31 17:27 | Emergency (ER) | payer MEDICAID ==
[2019-03-31] MEDS ORDERED: IPRATROPIUM/ALBUTEROL 3 ML DEYVIAL IH ONE ×2 (17:36→18:02)
[2019-03-31] MEDS ORDERED: predniSONE 20 MG TAB ONE (18:00)
[2019-03-31] MEDS ORDERED: predniSONE 20 MG TAB PO ONE (18:02)
--- NOTE | 2019-03-31 18:52 | EDPHY ---
General Time Seen by Provider: 03/31/19 17:35 Narrative: CLINICAL IMPRESSION: Acute asthma exacerbation ASSESSMENT/PLAN: 33-year-old female presents to the emergency department with an acute asthma exacerbation over the last 24 hr. Patient reports she ran out of her Advair, albuterol, and has not been to see her car wash attendant "in a long time". She arrives wheezing but not hypoxic or severely tachypneic. She received 2 duo nebs and an initial dose of prednisone with significant improvement in her symptoms. No coinciding signs of bacterial upper or lower respiratory disease. I have encouraged patient to follow up with [facility] as she reports she "always comes to the emergency department for medication refills". She was given [facility] walk-in hours and I encouraged contacting her primary car wash attendant. Warning signs return to ED sooner discussed discharge. DIFFERENTIAL DX: Differential includes but not limited to acute asthma exacerbation, acute on chronic asthma, bronchitis, pneumonia ED PROCEDURES: See lab and/or imaging results below ED COURSE: Patient reassessed after 2 duo nebs and 40 mg prednisone. Feeling much better. Holding oxygen saturations at 95%. Reports she is out of Advair and albuterol. CHIEF COMPLAINT: Asthma attack HPI: 33-year-old female presents to the emergency department wheezing and complaining of having an asthma attack. Patient reports she has been out of her asthma medications for at least a week. She was reportedly followed by car wash attendant for some time until her car wash attendant retired. She has not yet found a new car wash attendant. She has been to [facility] in the past but states "it is easier to come to the emergency department for medication refills ". She denies fevers, chills, recent upper respiratory illness. PAST MEDICAL HISTORY: Asthma See triage summary and nurse notes for addition applicable history REVIEW OF SYSTEMS: A full 10 point review of systems was negative except for those mentioned in HPI. PHYSICAL EXAM: General Appearance: Alert, oriented, appropriate, cooperative, NAD, well hydrated, non-toxic appearing, VSS, 89% on room air at arrival. After 2 DuoNebs patient was holding saturations at 94% while I was in the room. HEENT: TMs are clear bilaterally no perforation or FB, no injection, no evidence of serous or mucopurulent otitis. Oropharynx clear is no erythema or exudates, no tonsillar hypertrophy or asymmetry. Dentition without abnormality. Neck: Supple, nontender, no lymphadenopathy, no midline pain, FROM, no meningismus. Respiratory: [There are no retractions, expiratory wheezing to all lung sky Cardiac: Regular rate and rhythm, no murmurs or gallops. Skin: Warm, dry, no rashes, no nodules on palpation. MEDICAL DECISION MAKING: Patient was seen independently. Secondary supervising physician at time of evaluation was: Dr. Seo. Diagnosis: Acute asthma exacerbation. New, requires workup Summary: See Assessment and Plan for summary of ED visit Patient Progress: Improved, stable for discharge. - History Smoking Status: Current every day smoker - Objective Vital Signs: Initial Vital Signs Temperature (C) 36.7 C 03/31/19 17:33 Heart Rate 100 03/31/19 17:33 Respiratory Rate 18 03/31/19 17:33 O2 Sat (%) 89 L 03/31/19 17:33 O2 Delivery Mode Room Air Allergies/Adverse Reactions: Penicillins Allergy (Verified 02/02/19 04:44) Hives Home Medications: Medication Instructions Recorded Albuterol [Ventolin Hfa Inhaler] 200 puffs IH 02/02/19 Fluticasone/Salmeter 500/50Mcg 1 puffs IH BID 02/02/19 [Advair 500/50 (*)] Fluticasone/Salmeter 500/50Mcg 1 puffs IH BID #1 disk 02/02/19 [Advair 500/50 (*)] predniSONE 60 mg PO DAILY #15 tab 02/02/19 Albuterol [Proventil Neb] 2.5 mg IH Q4-6PRN PRN #10 deyvial 03/31/19 Fluticasone/Salmeter 500/50Mcg 1 puffs IH BID #1 disk 03/31/19 [Advair 500/50 (*)] predniSONE [Prednisone] 40 mg PO DAILY #20 tablet 03/31/19 Medications Given: Discontinued Medications Albuterol/Ipratropium (Duoneb) 3 ml IH EDNOW ONE Stop: 03/31/19 17:37 Last Admin: 03/31/19 17:38 Dose: 3 ml Albuterol/Ipratropium (Duoneb) 3 ml IH EDNOW ONE Stop: 03/31/19 18:03 Last Admin: 03/31/19 18:03 Dose: 3 ml Prednisone (Prednisone) 40 mg PO EDNOW ONE Stop: 03/31/19 18:03 Last Admin: 03/31/19 18:02 Dose: 40 mg Departure - Departure Disposition: Home, Routine, Self-Care Clinical Impression: Asthma attack Qualifiers: Asthma severity: moderate Condition: Good Instructions: Asthma (ED) Additional Instructions: DISCHARGE INSTRUCTIONS FROM YOUR DOCTOR Thank you for visiting our emergency department today. You were treated by a physician kennel assistant today and your case was reviewed with our ED Attending physician. Please keep in mind that discharge from the emergency department does not mean that there is nothing wrong - it simply means that we have not identified an emergency condition that requires further evaluation or treatment in the hospital. You should always plan to follow up with primary care for re- evaluation of your condition in the next 2-3 days. If you have been referred to a specialist, please call as soon as possible (today or tomorrow) to schedule your follow up appointment at the appropriate time. A NEW PRESCRIPTION FOR ADVAIR AND ALBUTEROL WAS GIVEN. PLEASE OBTAIN ADDITIONAL REFILLS FROM [facility]. WALK-IN HOURS WERE GIVEN BELOW. PLEASE CALL YOUR MOTION PICTURE SET WORKER TO ESTABLISH CARE WITH A NEW PROVIDER GIVEN THE YEARS HAS RETIRED. A PRESCRIPTION FOR PREDNISONE WAS ALSO GIVEN. PLEASE TAKE ALL THESE MEDS DIRECTED. RETURN TO ED FOR WORSENING SYMPTOMS, CHEST PAIN, FEVERS, WORSENING COUGH OR SHORTNESS OF BREATH OR ANY OTHER CONCERN. THE [facility] HAS WALK-IN APPOINTMENTS FOR THE HOMELESS AT THE FOLLOWING DAYS AND LOCATIONS. NO APPOINTMENT IS NEEDED. SATURDAY 8-10AM AT [facility] AND 11AM-1PM AT [facility] SATURDAY 8-10AM AT [facility] SATURDAY 8-10AM AT [facility] SATURDAY 2-4PM AT [facility] SATURDAY 8-10AM AT [facility] People present with illnesses and injuries in different ways, and it is always possible that we have missed something. You may always return for re-evaluation if symptoms worsen or if they are not improving or if you develop new/different symptoms. Again, thank you for choosing our emergency department. We hope that you feel better. Referrals: NONE *PRIMARY CARE P,. [Primary Care Provider] - As per Instructions [facility],. [Clinic] - 2-3 days, call for appt. Prescriptions: Albuterol [Proventil Neb] 2.5 mg IH Q4-6PRN PRN #10 deyvial PRN Reason: Cough Fluticasone/Salmeter 500/50Mcg [Advair 500/50 (*)] 1 puffs IH BID #1 disk predniSONE [Prednisone] 40 mg PO DAILY #20 tablet
[2019-03-31 19:12] VITALS: BP 105/75
== END 2019-03-31 19:14 | disposition home or self-care (01) ==
DX: J45.901 Unspecified asthma with (acute) exacerbation (principal)
CPT/HCPCS: J7512